=== PATIENT | male | born 1975 | race American Indian/Alaskan Native ===

== ENCOUNTER 2018-09-01 02:59 | Emergency (ER) | payer OTHER ==
[2018-09-01 03:27] LABS: Basophils % (Auto) 0.3 % (0.0-1.8); Eosinophils % (Auto) 0.1 % (0.0-4.3); Hematocrit 45.8 % (35.5-45.6); Hemoglobin 15.3 gm/dl (11.8-15.2); Lymphocytes # (Auto) 1.2 K/mm3 (1.2-5.4); Lymphocytes % (Auto) 17.3 % (13.4-35.0); Mean Corpuscular HGB Conc 33 % (32-34); Mean Corpuscular Volume 79 fl (84-94); Monocytes # (Auto) 0.4 K/mm3 (0.0-0.8); Monocytes % (Auto) 5.1 % (0.0-7.3); Platelet Count 257 K/mm3 (140-440); Red Blood Count 5.77 M/mm3 (3.65-5.03); Red Cell Distribution Width 12.6 % (13.2-15.2)
[2018-09-01 03:42] LABS: BUN/Creatinine Ratio 24; Blood Urea Nitrogen 34 mg/dL (9-20); Calcium 9.6 mg/dL (8.4-10.2); Hemolysis Index 10
[2018-09-01] MEDS ORDERED: HumuLIN R IV ONE (04:07)
[2018-09-01] MEDS ORDERED: NACL 0.9% 1000 ML 1,000 ML IV ONE (04:07)
[2018-09-01] MEDS ORDERED: ZOFRAN IV ONE (04:07)
--- NOTE | 2018-09-01 04:08 | Emergency Department Report ---
ED General Adult HPI - General Chief complaint: Hyperglycemia Stated complaint: WEAKNESS/EMESIS Time Seen by Provider: 09/01/18 04:01 Source: patient, RN notes reviewed Mode of arrival: Ambulatory Limitations: No Limitations - History of Present Illness Initial comments: Primary care Dr.: [facility] This is a pleasant 43-year-old gentleman with a history of type 2 diabetes. He was diagnosed 4 or 5 years ago. Patient's insulin-dependent, Humalog 7030, was recently broken, he was not able to give himself his outpatient insulin shots. He was able to have the pen fixed or replaced, and is now taking his typical insulin dose, which entails 15 units in the morning, and 20/25 units in the evening. However, he presents to the ER with a complaint of malaise, nausea, vomiting, feeling like his blood sugar is high. In the emergency room he is f ound to be hyperglycemic. He does not have an anion gap acidosis. He is given IV fluids, IV insulin, IV antiemetic medication, and ice chips with water. All of these interventions have improved his symptoms. He denies other complaints at this time. Contacted the [facility], and discussed the case with Dr. Blood, their physician coordinator. The patient is going to follow up with an outpatient primary care doctor on September 18 in the morning, with Dr. Jiménez, at the [facility] location. -: Gradual Radiation: non-radiation Consistency: now resolved Improves with: medication - Related Data Previous Rx's Medication Instructions Recorded Last Taken Type Metoclopramide [Reglan] 10 mg PO QID PRN #30 tablet 09/01/18 Unknown Rx Allergies Allergy/AdvReac Type Severity Reaction Status Date / Time No Known Allergies Allergy Unverified 09/01/18 03:02 ED Review of Systems ROS: Stated complaint: WEAKNESS/EMESIS Other details as noted in HPI Constitutional: denies: fever Eyes: denies: eye discharge, vision change ENT: denies: hearing loss Respiratory: denies: cough, shortness of breath Cardiovascular: denies: chest pain Gastrointestinal: nausea, vomiting. denies: abdominal pain Genitourinary: denies: urgency, dysuria Musculoskeletal: denies: back pain Skin: denies: lesions Neurological: weakness Hematological/Lymphatic: denies: easy bleeding ED Past Medical Hx - Past Medical History Previous Medical History?: Yes Hx Diabetes: Yes - Surgical History Past Surgical History?: No - Social History Smoking Status: Never Smoker Substance Use Type: None - Medications Home Medications: Home Medications Medication Instructions Recorded Confirmed Last Taken Type Metoclopramide [Reglan] 10 mg PO QID PRN #30 tablet 09/01/18 Unknown Rx ED Physical Exam - General Limitations: No Limitations General appearance: alert, in no apparent distress - Head Head exam: Present: atraumatic, normocephalic - Eye Eye exam: Present: normal appearance, EOMI. Absent: nystagmus - ENT ENT exam: Present: normal orophraynx, mucous membranes moist, normal external ear exam. Absent: normal exam (patient has poor dentition) - Neck Neck exam: Present: normal inspection, full ROM. Absent: tenderness, meningismus - Respiratory Respiratory exam: Present: normal lung sounds bilaterally. Absent: respiratory distress - Cardiovascular Cardiovascular Exam: Present: regular rate, normal rhythm, normal heart sounds. Absent: bradycardia, tachycardia, irregular rhythm, systolic murmur, diastolic murmur, rubs, gallop - GI/Abdominal GI/Abdominal exam: Present: soft. Absent: distended, tenderness, guarding, rebound, rigid, pulsatile mass - Rectal Rectal exam: Present: deferred - Extremities Exam Extremities exam: Present: normal inspection, full ROM, other (2+ pulses noted in the bilateral upper, lower extremities. Compartments soft. No long bony tenderness. The pelvis is stable.). Absent: tenderness, pedal edema, joint swelling, calf tenderness - Back Exam Back exam: Present: normal inspection, full ROM. Absent: tenderness, CVA tenderness (R), CVA tenderness (L), paraspinal tenderness, vertebral tenderness - Neurological Exam Neurological exam: Present: alert, oriented X3, normal gait, other (Extraocular movements intact. Tongue midline. No facial droop. Facial sensation intact to light touch in the V1, V2, V3 distribution bilaterally. 5 and 5 strength in 4 extremities.. Sensation is intact to light touch in 4 extremities.). Absent: motor sensory deficit - Psychiatric Psychiatric exam: Present: normal affect, normal mood - Skin Skin exam: Present: warm, dry, intact, normal color. Absent: rash ED Course Vital Signs 09/01/18 09/01/18 09/01/18 03:02 03:32 04:00 Temperature 98.2 F Pulse Rate 102 H 89 92 H Respiratory 18 10 L 14 Rate Blood Pressure 119/87 122/82 Blood Pressure [Left] O2 Sat by Pulse 99 97 Oximetry 09/01/18 09/01/18 09/01/18 04:30 04:42 04:53 Temperature Pulse Rate 96 H 93 H Respiratory 16 14 14 Rate Blood Pressure 104/70 Blood Pressure 101/62 [Left] O2 Sat by Pulse 97 98 99 Oximetry ED Medical Decision Making - Lab Data Result diagrams: 09/01/18 03:15 09/01/18 03:15 Vital Signs 09/01/18 09/01/18 09/01/18 03:02 03:32 04:00 Temperature 98.2 F Pulse Rate 102 H 89 92 H Respiratory 18 10 L 14 Rate Blood Pressure 119/87 122/82 Blood Pressure [Left] O2 Sat by Pulse 99 97 Oximetry 09/01/18 09/01/18 09/01/18 04:30 04:42 04:53 Temperature Pulse Rate 96 H 93 H Respiratory 16 14 14 Rate Blood Pressure 104/70 Blood Pressure 101/62 [Left] O2 Sat by Pulse 97 98 99 Oximetry Lab Results 09/01/18 09/01/18 09/01/18 Range/Units 03:11 03:15 03:15 WBC 7.1 (4.5-11.0) K/mm3 RBC 5.77 H (3.65-5.03) M/mm3 Hgb 15.3 H (11.8-15.2) gm/dl Hct 45.8 H (35.5-45.6) % MCV 79 L (84-94) fl MCH 27 L (28-32) pg MCHC 33 (32-34) % RDW 12.6 L (13.2-15.2) % Plt Count 257 (140-440) K/mm3 Lymph % (Auto) 17.3 (13.4-35.0) % [place] % (Auto) 5.1 (0.0-7.3) % Eos % (Auto) 0.1 (0.0-4.3) % Baso % (Auto) 0.3 (0.0-1.8) % Lymph # 1.2 (1.2-5.4) K/mm3 [place] # 0.4 (0.0-0.8) K/mm3 Eos # 0.0 (0.0-0.4) K/mm3 Baso # 0.0 (0.0-0.1) K/mm3 Seg Neutrophils % 77.2 H (40.0-70.0) % Seg Neutrophils # 5.5 (1.8-7.7) K/mm3 VBG pH (7.320-7.420) Sodium 133 L (137-145) mmol/L Potassium 4.4 (3.6-5.0) mmol/L Chloride 92.1 L (98-107) mmol/L Carbon Dioxide 25 (22-30) mmol/L Anion Gap 20 mmol/L BUN 34 H (9-20) mg/dL Creatinine 1.4 (0.8-1.5) mg/dL Estimated GFR > 60 ml/min BUN/Creatinine Ratio 24 % Glucose 352 H (75-100) mg/dL POC Glucose 317 H (70-105) Calcium 9.6 (8.4-10.2) mg/dL Magnesium (1.7-2.3) mg/dL Total Creatine Kinase (55-170) units/L 09/01/18 09/01/18 09/01/18 Range/Units 03:15 05:06 Unknown WBC (4.5-11.0) K/mm3 RBC (3.65-5.03) M/mm3 Hgb (11.8-15.2) gm/dl Hct (35.5-45.6) % MCV (84-94) fl MCH (28-32) pg MCHC (32-34) % RDW (13.2-15.2) % Plt Count (140-440) K/mm3 Lymph % (Auto) (13.4-35.0) % [place] % (Auto) (0.0-7.3) % Eos % (Auto) (0.0-4.3) % Baso % (Auto) (0.0-1.8) % Lymph # (1.2-5.4) K/mm3 [place] # (0.0-0.8) K/mm3 Eos # (0.0-0.4) K/mm3 Baso # (0.0-0.1) K/mm3 Seg Neutrophils % (40.0-70.0) % Seg Neutrophils # (1.8-7.7) K/mm3 VBG pH 7.396 (7.320-7.420) Sodium (137-145) mmol/L Potassium (3.6-5.0) mmol/L Chloride (98-107) mmol/L Carbon Dioxide (22-30) mmol/L Anion Gap mmol/L BUN (9-20) mg/dL Creatinine (0.8-1.5) mg/dL Estimated GFR ml/min BUN/Creatinine Ratio % Glucose (75-100) mg/dL POC Glucose 269 H (70-105) Calcium (8.4-10.2) mg/dL Magnesium 2.40 H (1.7-2.3) mg/dL Total Creatine Kinase 54 L (55-170) units/L - EKG Data -: EKG Interpreted by Wi EKG shows normal: sinus rhythm Rate: normal - EKG Data When compared to previous EKG there are: previous EKG unavailable 09/01/18 05:46 Normal sinus rhythm, 87 bpm, normal axis, QTC within normal limits, early repolarization, borderline high left ventricular voltage, this EKG is not consistent with ST elevation myocardial infarction. - Medical Decision Making Differential diagnosis, including not limited to: Diabetic hyperglycemia, gastroparesis, dehydration Assessment and plan: 43-year-old gentleman with resolved nausea and vomiting, improving hyperglycemia, likely hyperglycemia secondary to not taking his medications for a few days. He does not meet criteria for admission or hospitalization. We have contacted the [facility], and they have arranged close outpatient follow-up for the patient. He has indicated that he does not need a refill on his insulin prescriptions. He will be discharged with nausea medication, and instructions to follow up. We also discussed the importance of diet and lifestyle modification. Critical care attestation.: If time is entered above; I have spent that time in minutes in the direct care of this critically ill patient, excluding procedure time. ED Disposition Clinical Impression: Diabetes mellitus with hyperglycemia Qualifiers: Diabetes mellitus type: type 2 Diabetes mellitus mcc insulin use: with mcc use Qualified Code(s): E11.65 - Type 2 diabetes mellitus with hyperglycemia Disposition: DC-01 TO HOME OR SELFCARE Is pt being admited?: No Does the pt Need Aspirin: No Condition: Stable Instructions: Diabetes Mellitus Type 2 in Adults (ED) Additional Instructions: Continue current outpatient medications. Continue current outpatient insulin therapy. Patient should make certain to adhere to an appropriate diabetic diet, as recommended by the [employer]. Patient has a follow-up appointment at the [facility], with Dr. Poncho Jiménez, September 18 in the morning. If the patient is not able to make this appointment, please make certain to call at least 24 hours and advance. Return to the emergency room right away with new, worsening or different symptoms, or symptoms not present on the initial emergency room evaluation. Prescriptions: Metoclopramide [Reglan] 10 mg PO QID PRN #30 tablet PRN Reason: Nausea
[2018-09-01 06:06] VITALS: BP 108/69
== END 2018-09-01 06:13 | disposition home or self-care (01) ==
LOC: ED 02:59
DX: E11.65 Type 2 diabetes mellitus with hyperglycemia (principal); Z79.4 Long term (current) use of insulin
CPT/HCPCS: 36415; 80048; 82550; 82805; 82962; 83735; 85025; 93005; 93010; 96361; 96374; 96375; 99283; J2405; J7030; J1815